=== PATIENT | female | born 1990 | race Two or more races ===

== ENCOUNTER 2018-07-13 12:46 | Emergency (ER) | payer SELFPAY ==
[~2018-07-13] VITALS: Ht 154.9 cm; Wt 73.0 kg
[2018-07-13] MEDS ORDERED: MORPHINE SULFATE 4 MG/ML CPJ (NOT FOR IM USE) IV STA (13:33)
[2018-07-13] MEDS ORDERED: SODIUM CHLORIDE 0.9% 1,000 ML IV ONE (13:33)
[2018-07-13] MEDS ORDERED: ONDANSETRON HCL 4MG/2ML INJ IV STA (13:33)
[2018-07-13 14:00] LABS: HEMATOCRIT. 41.9 % (36.0-48.0); HEMOGLOBIN. 13.8 g/dL (12.0-16.0); MEAN CORPUSCULAR HEMOGLOBIN 29.2 pg (28.0-32.0); MEAN CORPUSCULAR VOLUME 88.9 fL (81.0-99.0); MEAN PLATELET VOLUME 9.7 fl (7.4-10.4); PLATELET 257 x1000/uL (130-400); RED BLOOD CELL COUNT 4.71 mill/uL (4.2-5.4); RED CELL DISTRIBUTION WIDTH 13.3 % (11.6-14.6)
[2018-07-13 14:07] LABS: CHLORIDE 104 mEq/L (98-107)
[2018-07-13 14:09] LABS: PROTHROMBIN TIME 10.6 sec (9.6-11.0)
[2018-07-13 14:10] LABS: HCG SCREEN NEGATIVE
[2018-07-13 14:11] LABS: ETHANOL BLOOD < 10 mg/dL
[2018-07-13 14:17] LABS: PLATELET ESTIMATE NORMAL
[2018-07-13] MEDS ORDERED: ONDANSETRON HCL 4MG/2ML INJ IV ONE (15:15)
[2018-07-13] MEDS ORDERED: FAMOTIDINE 20MG/2ML VIAL IV ONE (15:15)
[2018-07-13] MEDS ORDERED: MORPHINE SULFATE 4 MG/ML CPJ (NOT FOR IM USE) IV ONE (15:15)
[2018-07-13] MEDS ORDERED: KETOROLAC 30MG/ML VIAL IV ONE (15:15)
[2018-07-13 17:09] LABS: CLARITY URINE CLOUDY (CLEAR); COLOR URINE YELLOW (YELLOW); KETONES URINE 1+ (NEGATIVE); LEUKOCYTE ESTERASE URINE 1+ (NEGATIVE); NITRITE URINE NEGATIVE (NEGATIVE); OCCULT BLOOD URINE TRACE (NEGATIVE); PH URINE 5.5 (4.5-8.0); PROTEIN URINE NEGATIVE (NEGATIVE); SPECIFIC GRAVITY URINE 1.026 (1.005-1.030); UROBILINOGEN URINE 0.2 E.U./dL (0.2-1.0)
[2018-07-13 17:16] LABS: *BARBITURATES SCREEN URINE NEGATIVE (NEGATIVE)
[2018-07-13 17:17] LABS: *AMPHETAMINES SCREEN URINE NEGATIVE (NEGATIVE); *BENZODIAZEPINES SCREEN URINE NEGATIVE (NEGATIVE); *COCAINE SCREEN URINE NEGATIVE (NEGATIVE)
[2018-07-13 17:18] LABS: METHADONE URINE SCREEN NEGATIVE (NEGATIVE); PHENCYCLIDINE URINE SCREEN NEGATIVE (NEGATIVE)
[2018-07-13 17:23] LABS: CANNABINOID URINE SCREEN PRESUMTIVE POSITIVE (NEGATIVE); OPIATES URINE SCREEN PRESUMTIVE POSITIVE (NEGATIVE)
[2018-07-13 17:41] VITALS: BP 112/59
== END 2018-07-13 17:43 | disposition home or self-care (01) ==
LOC: ER 13:06
DX: K29.70 Gastritis, unspecified, without bleeding (principal); F12.10 Cannabis abuse, uncomplicated; Z98.890 Other specified postprocedural states
CPT/HCPCS: 36415; 74176; 80053; 80305; 80320; 81003; 83690; 83880; 84484; 84703; 85025; 85610; 85730; 96361; 96374; 96375; 96376; 99284; J1885; J2270; J2405; J3490; J7030; Z7610; G0480